=== PATIENT | female | born 1980 | race Two or more races ===

== ENCOUNTER 2020-01-29 10:45 | Inpatient (IN) | payer OTHER ==
[~2020-01-29] VITALS: Ht 165.1 cm; Wt 90.7 kg
[2020-01-29] MEDS ORDERED: MICROZIDE12.5 MG PO (11:33)
[2020-01-29] MEDS ORDERED: ZESTRIL40 M1 PO (11:33)
[2020-01-29] MEDS ORDERED: LOPID PO (11:33)
[2020-03-31] MEDS ORDERED: GEMFIBROZIL600 MG PO (08:55)
[2020-03-31] MEDS ORDERED: HYDROCHLOROTHIA25 MG PO (08:55)
== END 2020-04-01 12:46 | disposition home or self-care (01) | DRG 460 ==
LOC: SURH 02-04 07:00 → O/R 02-04 10:45 → SURH 02-04 10:45 → O/R 03-31 05:35 → SURH 03-31 07:00
PROVIDERS: ADMIT Neurological Surgery
PROC: 0ST20ZZ Resection of Lumbar Vertebral Disc, Open Approach (ICD-10-PCS; 2020-03-31)
PROC: 3E0U0GB Introduction of Recombinant Bone Morphogenetic Protein into Joints, Open Approach (ICD-10-PCS; 2020-03-31)
PROC: 0SG00AJ Fusion of Lumbar Vertebral Joint with Interbody Fusion Device, Posterior Approach, Anterior Column, Open Approach (ICD-10-PCS; principal; 2020-03-31 07:00)
DX: M47.26 Other spondylosis with radiculopathy, lumbar region (principal); M48.062 Spinal stenosis, lumbar region with neurogenic claudication

== ENCOUNTER 2020-03-29 07:10 | Outpatient (CLI) | payer OTHER ==
[~2020-03-29 07:10] MED LIST: LOPID PO; MICROZIDE12.5 MG PO; ZESTRIL40 M1 PO
== END 2020-03-29 07:15 | disposition home or self-care (01) ==
LOC: LAB 07:10
DX: R05 Cough (principal)

== ENCOUNTER 2020-07-28 05:15 | Day surgery (SDC) | payer OTHER ==
[~2020-07-28 05:15] MED LIST changes: +FORTAMET500 MG PO; +GEMFIBROZIL600 MG PO; +HYDROCHLOROTHIA25 MG PO; +NAPR500T14 PO; +NORVASC5 MG PO
== END 2020-07-28 15:10 | disposition home or self-care (01) ==
LOC: CIR.AMB 05:15
PROVIDERS: ATTEND Urology
DX: N20.0 Calculus of kidney (principal); N20.1 Calculus of ureter; Z20.828 Contact with and (suspected) exposure to other viral communicable diseases